=== PATIENT | male | born 1975 | race American Indian/Alaskan Native ===

== ENCOUNTER 2020-11-03 16:24 | Emergency (ER) | payer MEDICARE | END 2020-11-03 19:32 | disposition left against medical advice (07) | LOC: ED 16:24 | DX: R10.9 Unspecified abdominal pain (principal); Z53.21 Procedure and treatment not carried out due to patient leaving prior to being seen by health care provider ==

== ENCOUNTER 2021-07-15 12:14 | Emergency (ER) | payer MEDICARE ==
--- NOTE | 2021-07-15 15:46 | XRay Report ---
CHEST 2 VIEWS INDICATION / CLINICAL INFORMATION: cough, low stats STUDY TIME: 1536 COMPARISON: 08/14/2010 FINDINGS: SUPPORT DEVICES: None. HEART / MEDIASTINUM: No significant abnormality. LUNGS / PLEURA: No significant acute pulmonary or pleural abnormality. No pneumothorax. ADDITIONAL FINDINGS: No significant additional findings. Signer Name: Peterson Hurtado MD Signed: 07/15/2021 3:42 PM Workstation Name: [id number]
[2021-07-15] MEDS ORDERED: dexAMETHasone 4 MG/ML VIAL IM ONE (16:22)
[2021-07-15] MEDS ORDERED: PENICILLIN G BENZATHINE 1.2 MILLION UNIT/2 ML INJ IM STA (16:22)
[2021-07-15] MEDS ORDERED: ACETAMINOPEN W/CODEINE 120-12MG ORAL LIQD 5 ML PO STA (16:22)
--- NOTE | 2021-07-15 17:00 | Emergency Department Report ---
- General Chief Complaint: Upper Respiratory Infection Stated Complaint: CHEST CONGESTION Time Seen by Provider: 07/15/21 16:08 Source: patient Mode of arrival: Ambulatory Limitations: No Limitations - History of Present Illness Initial Comments: 46-year-old male presents emerged part with complaining of a sore throat for the last few days and is worried about having strep. He called his doctor attempted to get an appointment but they advised him to come to the ER to receive a strep test and treatment. Patient states that he he requires antibiotics and steroids provided to be done prior to his discharge she reports no change in voice or drooling but has had some issues with [place] odynophagia due to the inflammation. No chest pain or palpitations, no nausea vomiting, no hemoptysis no hematemesis hematochezia, no abdominal pain. MD Complaint: sore throat - Related Data Home Medications Medication Instructions Recorded Confirmed Last Taken Omeprazole [PriLOSEC] 40 mg PO QDAY 09/02/14 07/15/21 09/01/14 40 mg lisinopriL [Zestril] 5 mg PO QDAY 09/02/14 07/15/21 08/26/14 5 mg Previous Rx's Medication Instructions Recorded Last Taken Type Lidocaine Viscous 2% 5 ml MM Q3H PRN #120 udc 07/15/21 Unknown Rx Allergies Allergy/AdvReac Type Severity Reaction Status Date / Time No Known Allergies Allergy Verified 07/15/21 16:09 ED Review of Systems ROS: Stated complaint: CHEST CONGESTION Other details as noted in HPI Comment: All other systems reviewed and negative ED Past Medical Hx - Past Medical History Hx Hypertension: Yes Hx Heart Attack/AMI: No Hx Diabetes: No Hx Renal Disease: No Hx Asthma: No - Surgical History Hx Coronary Stent: No Hx Pacemaker: No - Social History Smoking Status: Never Smoker Substance Use Type: None - Medications Home Medications: Home Medications Medication Instructions Recorded Confirmed Last Taken Type Omeprazole [PriLOSEC] 40 mg PO QDAY 09/02/14 07/15/21 09/01/14 History 40 mg lisinopriL [Zestril] 5 mg PO QDAY 09/02/14 07/15/21 08/26/14 History 5 mg Lidocaine Viscous 2% 5 ml MM Q3H PRN #120 udc 07/15/21 Unknown Rx ED Physical Exam - General Limitations: No Limitations General appearance: alert, in no apparent distress - Head Head exam: Present: atraumatic, normocephalic - Eye Eye exam: Present: normal appearance, EOMI Pupils: Present: normal accommodation - ENT ENT exam: Present: mucous membranes moist, other (Pharynx is red with some mild swelling no evidence of any abscess present airway is patent tongue uvula midline no drooling. No no abscess visualized) - Neck Neck exam: Present: normal inspection - Respiratory Respiratory exam: Present: normal lung sounds bilaterally. Absent: respiratory distress - Cardiovascular Cardiovascular Exam: Present: regular rate, normal rhythm. Absent: systolic murmur, diastolic murmur, rubs, gallop - GI/Abdominal GI/Abdominal exam: Present: soft, normal bowel sounds - Rectal Rectal exam: Present: deferred - Extremities Exam Extremities exam: Present: normal inspection - Back Exam Back exam: Present: normal inspection - Neurological Exam Neurological exam: Present: alert, oriented X3 - Psychiatric Psychiatric exam: Present: normal affect, normal mood - Skin Skin exam: Present: warm, dry, intact, normal color. Absent: rash ED Course Vital Signs 07/15/21 07/15/21 07/15/21 13:16 16:05 16:07 Temperature 97.9 F 98.8 F Pulse Rate 91 H 77 Respiratory 18 15 Rate Blood Pressure 142/82 124/78 [Right] O2 Sat by Pulse 95 99 97 Oximetry Critical care attestation.: If time is entered above; I have spent that time in minutes in the direct care of this critically ill patient, excluding procedure time. ED Disposition Clinical Impression: Pharyngitis Disposition: 01 HOME / SELF CARE / HOMELESS Is pt being admited?: No Does the pt Need Aspirin: No Condition: Stable Instructions: Pharyngitis Additional Instructions: You are treated emergency department for your pharyngitis as you requested. The Bicillin provided antibiotic which should help to eradicate bacterial pathogen causing the pharyngitis no further antibiotics are needed or on the outpatient. Steroids were also provided per your request. Please be sure to follow-up with your your doctor for any further treatment options and management Prescriptions: Lidocaine Viscous 2% 5 ml MM Q3H PRN #120 udc PRN Reason: Pain, Moderate (4-6) Referrals: PRIMARY CARE,MD [Referring] - 3-5 Days
[2021-07-15 17:34] VITALS: BP 145/79
== END 2021-07-15 17:27 | disposition home or self-care (01) ==
LOC: ED 12:14
DX: J02.9 Acute pharyngitis, unspecified (principal); I10 Essential (primary) hypertension
CPT/HCPCS: 71046; 96372; 99283; J0561; J1100